=== PATIENT | male | born 2000 | race Caucasian/White ===

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

== ENCOUNTER 2023-07-06 20:47 | Emergency (ER) | payer BC, MEDICAID, SELFPAY ==
[2023-07-06 20:48] VITALS: BP 137/87; PULSE 69; RESP 14; TEMP 36.7; O2SAT 100
[2023-07-06 20:56] LABS: Glucose Point of Care 96 mg/dL (70-110)
--- NOTE | 2023-07-06 21:00 | ED_ITS ---
HPI - Weakness 2 General: Chief complaint: Weakness Stated complaint: vision changes, face numbess Time Seen by Provider: 07/06/23 21:00 History of Present Illness: 22-year-old male patient comes in today with some complaints of left eye visual disturbance and left facial numbness. Patient also reports a headache on and off for the last 2 weeks. Patient appears nontoxic. Patient appears in no acute distress. Patient denies any routine medications, all immunizations are up-to-date, and patient denies any smoking or use of alcohol. Associated symptoms: Reports headache(s) Review of Systems 2 General: Reports: 10 or more systems reviewed and unremarkable except in HPI and below Neuro: Reports: headache(s) PFS ED 2 PFSH: Medical History (Updated 07/06/23 @ 22:14 by ETELVINA Gallardo) Psychiatric care Social History Smoking and tobacco/nicotine status: current some day tobacco/nicotine user Physical Exam 2 Const: COMMON NORMALS: alert HENMT: COMMON NORMALS: normocephalic HEAD & SCALP: normocephalic Resp: COMMON NORMALS: normal respiratory effort Cardio: COMMON NORMALS: regular rate RATE: regular rate GI: COMMON NORMALS: non-tender Extremity: COMMON NORMALS: normal to inspection Neuro: COMMON NORMALS: no focal motor deficits SENSORIUM/ORIENTATION: Yes alert Skin: COMMON NORMALS: turgor normal GENERAL SKIN EXAM: turgor normal Course 2 Vital Signs: Vital signs: Vital Signs Temperature 98.0 F 07/06/23 20:48 Pulse Rate 69 07/06/23 20:48 Respiratory Rate 14 07/06/23 20:48 Blood Pressure 137/87 07/06/23 20:48 Pulse Oximetry 100 07/06/23 20:48 Oxygen Delivery Me thod Room Air 07/06/23 20:48 MDM - Weakness Medical Decision Making 22-year-old male patient comes in today for complaints of numbness to the left face and visual disturbance to the left eye. Patient reports symptoms are clearing as he had arrived to the ER. Patient also reports a headache for last 2 weeks. Patient appears nontoxic. Patient appears no acute distress. Respirations are even lungs are clear to auscultation. No focal neural deficits are noted. Differential diagnosis includes but not limited to Nair's palsy, migraine syndrome, anxiety. CT of the head was normal. CBC and CMP was unremarkable. Vital signs were normal. Believe the patient most likely has symptoms related to migraine. Recommended use of naproxen and/or promethazine as needed for recurrence of headache. Encourage fluids rest and follow-up with primary care for further instructions. Patient reported understanding and agreed to plan. Lab Data 07/06/23 21:15 07/06/23 21:[address] 07/06/23 21:04 IMPRESSION: 1. No acute abnormality of the brain. 2. Incidental/nonacute findings are listed in the report. Laboratory Results WBC 6.31 10^3/uL (4.5-13.0) 07/06/23 21:15 RBC 5.40 10^6/uL (3.85-5.65) 07/06/23 21:15 Hgb 15.80 g/dL (13.2-15.6) H 07/06/23 21:15 Hct 45.7 % (37-53) 07/06/23 21:15 MCV 84.6 fl (82-101) 07/06/23 21:15 MCH 29.3 pg (27-33) 07/06/23 21:15 MCHC 34.6 g/dL (30-55) 07/06/23 21:15 RDW 11.9 % (12.1-15.1) L 07/06/23 21:15 Plt Count 165 10^3/cmm (157-399) 07/06/23 21:15 MPV 11.5 fL (7.4-10.4) H 07/06/23 21:15 Neut % (Auto) 48.1 % 07/06/23 21:15 Lymph % (Auto) 43.9 % 07/06/23 21:15 [place] % (Auto) 6.2 % 07/06/23 21:15 Eos % (Auto) 0.8 % 07/06/23 21:15 Baso % (Auto) 0.8 % 07/06/23 21:15 Neut # (Auto) 3.04 10^3/uL (1.8-8.0) 07/06/23 21:15 Lymph # (Auto) 2.8 10^3/uL (1.5-6.5) 07/06/23 21:15 [place] # (Auto) 0.4 10^3/uL (0.2-0.9) 07/06/23 21:15 Eos # (Auto) 0.1 10^3/uL (0.0-0.8) 07/06/23 21:15 Baso # (Auto) 0.1 10^3/uL (0.0-0.1) 07/06/23 21:15 Nucleated RBC % (auto) 0 % 07/06/23 21:15 Nucleated RBCs # 0.0 /100WBC 07/06/23 21:15 Sodium 140 mmol/L (136-145) 07/06/23 21:15 Potassium 3.7 mmol/L (3.5-5.1) 07/06/23 21:15 Chloride 102 mmol/L (98-107) 07/06/23 21:15 Carbon Dioxide 26 mmol/L (22-29) 07/06/23 21:15 Anion Gap 15.7 (5-19) 07/06/23 21:15 BUN 7 mg/dL (6-20) 07/06/23 21:15 Creatinine 0.8 mg/dL (0.7-1.2) 07/06/23 21:15 GFR Calculation 123.2 mL/min (90-130) 07/06/23 21:15 Glucose 103 mg/dL (65-115) 07/06/23 21:15 POC Glucose 92 mg/dL (70-110) 07/06/23 21:16 Calculated Osmolality 288 mOsm/kg (285-295) 07/06/23 21:15 Calcium 9.8 mg/dL (8.5-10.5) 07/06/23 21:15 Total Bilirubin 0.6 mg/dL (0.15-1.2) 07/06/23 21:15 AST 16 U/L (0-40) 07/06/23 21:15 ALT 10 U/L (0-41) 07/06/23 21:15 Alkaline Phosphatase 62 U/L (40-130) 07/06/23 21:15 Total Protein 7.2 g/dL (6.6-8.7) 07/06/23 21:15 Albumin 5.0 g/dL (3.5-5.2) 07/06/23 21:15 Globulin 2.2 g/dL (1.3-4.6) 07/06/23 21:15 All radiology interpretation(s) finalized by discharge Discharge Plan Discharge Patient Disposition: Home Clinical Impression: Migraine aura, persistent Qualifiers: Status migrainosus presence: without status migrainosus Intractability: not intractable Qualified Code(s): G43.509 - Persistent migraine aura without cerebral infarction, not intractable, without status migrainosus Condition: Stable Prescriptions: New naproxen 500 mg tablet 500 mg PO BID PRN (Reason: headache, migraine) Qty: 12 0RF Rx Instructions: use with promethazine promethazine 25 mg tablet 25 mg PO BID PRN (Reason: migraine headache) Qty: 12 0RF Rx Instructions: use with naproxen 500 mg No Action Multiple Vitamins Tablet 1 tab PO DAILY magnesium citrate Solution 150 ml PO BID PRN (Reason: constipation) Qty: 296 0RF Discharge Orders: Discharge ED (Routine); Ordered 07/06/23 Ordered By: Praveen Ruiz Discharge Diet: Usual diet Discharge Activity: Increase activity as tolerated Patient Instructions: Migraine Headache (ED) Activity Restrictions/Additional Instructions: Drink plenty of water and fluids. Try naproxen with promethazine if symptoms become worse or headache evolves. Follow-up with primary care for further instructions. Return to ED for new concerns. Coding Level of Care Code ED Crystallography Teacher for Aroldo Barber
--- NOTE | 2023-07-06 21:04 | CTR_ITS ---
PROCEDURE INFORMATION: Exam: CT Head Without Contrast Exam date and time: 07/06/2023 9:25 PM Age: 22 years old Clinical indication: Pain; Visual disturbance and weakness, facial; Headache; Patient HX: C/O NAZARIO with blurred vision and left facial numbness. ; Additional info: Headache, facial numbness TECHNIQUE: Imaging protocol: Computed tomography of the head without contrast. Sagittal and coronal reformatted images were created and reviewed. Radiation optimization: All CT scans at this facility use at least one of these dose optimization techniques: automated exposure control; mA and/or kV adjustment per patient size (includes targeted exams where dose is matched to clinical indication); or iterative reconstruction. REPORTING DATA: Count of CT and Cardiac NM exams in prior 12 months: This patient has received 0 known CTs and 0 known cardiac nuclear medicine studies in the 12 months prior to the current study. COMPARISON: No relevant prior studies available. RADIATION DOSE METRICS: Total DLP (mGy-cm): 1055.38 FINDINGS: Brain: No acute intracranial hemorrhage. No acute infarct. No intra-axial or extra-axial masses. Augustine-white matter differentiation is preserved. No cerebral edema. No extra-axial fluid collections. No midline shift. Cerebral ventricles: No hydrocephalus. Paranasal sinuses: Visualized paranasal sinuses are clear. Mastoid air cells: Visualized mastoid air cells are clear. Orbital cavities: Globes and lenses, extraocular muscles, and optic nerves are intact bilaterally. No acute intraorbital abnormality. Nasal cavity: Mild right nasal septal deviation. Bones/joints: No acute fracture. Soft tissues: The extracranial soft tissues are unremarkable. CT/CT head wo con* [id number] IMPRESSION: 1. No acute abnormality of the brain. 2. Incidental/nonacute findings are listed in the report.
[2023-07-06 21:19] LABS: Glucose Point of Care 92 mg/dL (70-110)
[2023-07-06 21:25] LABS: Basophils # 0.1 10^3/uL (0.0-0.1); Basophils % 0.8 %; Eosinophils # 0.1 10^3/uL (0.0-0.8); Eosinophils % 0.8 %; Hematocrit 45.7 % (37-53); Lymphocytes # 2.8 10^3/uL (1.5-6.5); Lymphocytes % 43.9 %; Mean Corpuscular HGB Conc 34.6 g/dL (30-55); Mean Corpuscular Hemoglobin 29.3 pg (27-33); Mean Corpuscular Volume 84.6 fl (82-101); Mean Platelet Volume 11.5 fL (7.4-10.4); Monocytes # 0.4 10^3/uL (0.2-0.9); Monocytes % 6.2 %; Neutrophils # 3.04 10^3/uL (1.8-8.0); Neutrophils % 48.1 %; Nucleated Red Blood Cells % 0 %; Platelet Count 165 10^3/cmm (157-399); Red Cell Distribution Width 11.9 % (12.1-15.1); White Blood Count 6.31 10^3/uL (4.5-13.0)
[2023-07-06 21:49] LABS: Alanine Aminotransferase 10 U/L (0-41); Alkaline Phosphatase 62 U/L (40-130); Anion Gap 15.7 (5-19); Aspartate Amino Transferase 16 U/L (0-40); Blood Urea Nitrogen 7 mg/dL (6-20); Calcium 9.8 mg/dL (8.5-10.5); Carbon Dioxide 26 mmol/L (22-29); Chloride 102 mmol/L (98-107); Globulin 2.2 g/dL (1.3-4.6); Glomerular Filtration Rate 123.2 mL/min (90-130); Glucose 103 mg/dL (65-115); Osmolality Calculated 288 mOsm/kg (285-295); Potassium 3.7 mmol/L (3.5-5.1); Sodium 140 mmol/L (136-145); Total Bilirubin 0.6 mg/dL (0.15-1.2); Total Protein 7.2 g/dL (6.6-8.7)
[2023-07-06 22:23] VITALS: BP 123/82; PULSE 55; RESP 16; O2SAT 95
== END 2023-07-06 22:24 | disposition home or self-care (01) ==
PROVIDERS: Emergency Provider Nurse Practitioner Family
DX: G43.509 Persistent migraine aura without cerebral infarction, not intractable, without status migrainosus (principal); Z72.0 Tobacco use
CPT/HCPCS: 36415; 36416; 70450; 80053; 82962; 85025; 99284